=== PATIENT | male | born 1970 | race Caucasian/White ===

== ENCOUNTER 2018-09-25 06:11 | Day surgery (SDC) | payer BC ==
[~2018-09-25] VITALS: Ht 165.1 cm; Wt 85.7 kg
[~2018-09-25 06:11] MED LIST: CENTCHW3 PO; CLIN150C14 PO; GABA600T4 PO; GLIP5TAB20 PO; LIDO1SOL7 PO; LIPI20TA PO; LR 1,000 ML IV ONE; MELA10CA PO; MELA3TAB PO; METF500T4 PO; NAPR-885 PO; NEXI20CA PO; PROBCAP14 PO; VITATAB11 PO; ZYRT10CA PO
[2018-09-25] MEDS ORDERED: LIDOCAINE 1% MDV 20ML VIAL As Ordered ONE (06:42)
[2018-09-25] MEDS ORDERED: BACITRACIN OINT 30GM As Ordered ONE (06:42)
[2018-09-25] MEDS ORDERED: BUPIVACAINE HCL 0.25% 10 ML VIAL As Ordered ONE (06:43)
[2018-09-25] MEDS ORDERED: MIDAZOLAM INJ 2 MG/2 ML VIAL (J2250) As Ordered ONE ×2 (07:12→07:19)
[2018-09-25] MEDS ORDERED: dexameTHASONE 4 MG/ML 1ML VIAL (J1100) As Ordered ONE ×2 (07:12→08:08)
[2018-09-25] MEDS ORDERED: PROPOFOL 200 MG/20 ML VIAL As Ordered ONE ×2 (07:12→07:37)
[2018-09-25] MEDS ORDERED: LIDOCAINE 2% INJ 100 MG/5 ML SDV (FOR ANES.) As Ordered ONE (07:12)
[2018-09-25] MEDS ORDERED: ROCURONIUM BROMIDE 50 MG/5 ML VIAL As Ordered ONE ×2 (07:12→07:37)
[2018-09-25] MEDS ORDERED: fentaNYL 250 MCG/5 ML INJECTION (J3010) As Ordered ONE (07:12)
[2018-09-25] MEDS ORDERED: ONDANSETRON 4MG/2ML VIAL (J2405) As Ordered ONE ×2 (07:12→08:08)
[2018-09-25] MEDS ORDERED: fentaNYL 100 MCG/2 ML INJECTION (J3010) As Ordered ONE ×2 (07:19→09:36)
[2018-09-25] MEDS ORDERED: PHENYLephrine HCL 500 MCG/5 ML (100MCG/ML) SYRINGE (J2370) As Ordered ONE (07:58)
[2018-09-25] MEDS ORDERED: METOCLOPRAMIDE INJ 10MG/2ML VIAL (J2765) As Ordered ONE (08:08)
[2018-09-25] MEDS ORDERED: SUCCINYLCHOLINE 100 MG/5 ML SYRINGE (J0330) As Ordered ONE (08:08)
[2018-09-25] MEDS ORDERED: ALBUTEROL 6.7GM INHALER **FOR ANES. CART/OMNICELL ONLY As Ordered ONE (08:08)
[2018-09-25] MEDS ORDERED: GLYCOPYRROLATE INJ 0.2 MG/ML 2 ML VIAL As Ordered ONE (08:28)
[2018-09-25] MEDS ORDERED: NEOSTIGMINE 10 MG/10 ML VIAL (J2710) As Ordered ONE (08:28)
[2018-09-25] MEDS ORDERED: HYDROmorphone HCL 2 MG/ML 1ML VIAL (J1170) As Ordered ONE (08:30)
[2018-09-25] MEDS: PERCOCET 5MG/325MG TAB PO PRN ×2 (09:35→10:10)
[2018-09-25] MEDS ORDERED: PERCOCET 5MG/325MG TAB As Ordered ONE (09:36)
[2018-09-25] MEDS ORDERED: ONDANSETRON 4MG/2ML VIAL (J2405) IV PRN (09:45)
[2018-09-25] MEDS ORDERED: PERCOCET 5MG/325MG TAB PO PRN ×2 (09:45)
[2018-09-25] MEDS ORDERED: fentaNYL 100 MCG/2 ML INJECTION (J3010) IV PRN (09:45)
[2018-09-25] MEDS ORDERED: LR 1,000 ML IV SCH (09:45)
[2018-09-25 12:00] VITALS: BP 136/77
--- NOTE | 2018-09-25 16:10 | RO ---
DATE OF PROCEDURE: 09/25/2018 PREPROCEDURE DIAGNOSIS: Right hydrocele. POSTPROCEDURE DIAGNOSIS: Right hydrocele. PROCEDURE: Right hydrocelectomy. SURGEON: Rodo Ramey MD [employer]: None. ANESTHESIA: General. OPERATIVE INDICATIONS: This is a 48-year-old male with a large right hydrocele. He was brought to the operating room today for the above listed procedure. DESCRIPTION OF PROCEDURE: The patient was brought to the operating room and general anesthesia was induced. Prophylactic antibiotics were infused. He was then placed in the supine position in preparation for the above listed procedure. At this point, an approximately 4 cm transverse incision was made over the right hemiscrotum. We then dissected down through the scrotal wall layers and then the testicle was delivered outside of the scrotum inside of the tunica vaginalis. At this point, the tunica vaginalis was opened and the hydrocele fluid immediately drained. The fluid was clear. All of the fluid was drained out. At this point, we began resecting the hydrocele sac using cautery, and of note, the hydrocele did appear to be septated. All compartments of the hydrocele sac were then removed completely using cautery. Once it was done, the edges of the hydrocele sac were oversewn using a #3-0 Vicryl suture. Throughout the procedure, made sure not to cause any damage to any vital structures of the testicle. At this point, hemostasis was obtained using electrocautery. Once satisfied with hemostasis, the testicle was delivered back inside the right hemiscrotum in its normal anatomic position. At this point, we began closure by closing first the dartos with a running #3-0 chromic suture. The skin was then closed with interrupted #2-0 chromic sutures. Bacitracin ointment was applied and then dressings were applied, and this marked the conclusion of the procedure. The patient was then awakened from anesthesia and transported to the recovery room in stable condition. Estimated blood loss was 5 mL. Complications: None. Specimens: Right hydrocele sac. Plan: The patient will followup in the clinic in a few weeks for a postoperative visit.
== END 2018-09-25 12:10 | disposition home or self-care (01) ==
LOC: M SDC 06:11
PROVIDERS: ATTEND Urology
DX: N43.3 Hydrocele, unspecified (principal); E78.5 Hyperlipidemia, unspecified; E10.9 Type 1 diabetes mellitus without complications; Z79.4 Long term (current) use of insulin; Z79.84 Long term (current) use of oral hypoglycemic drugs; K21.9 Gastro-esophageal reflux disease without esophagitis; F17.210 Nicotine dependence, cigarettes, uncomplicated; Z91.013 Allergy to seafood; Z79.899 Other long term (current) drug therapy; Z85.831 Personal history of malignant neoplasm of soft tissue
CPT/HCPCS: 55040; 88302; J0330; J0690; J1170; J2250; J2405; J2710; J2765; J3010

== ENCOUNTER → 2020-08-08 | Outpatient (REF) | payer BC ==
[~2020-08-08] MED LIST changes: -CLIN150C14 PO; +CLIN150C15 PO; -LIDO1SOL7 PO; +LIDO2SOL17 PO; -LR 1,000 ML IV ONE; -MELA3TAB PO; +MELA3TAB70 PO; +METF-838 PO; -METF500T4 PO
[2020-08-08 13:49] LABS: CREATININE, URINE 67.4 MG/DL; MALB URINE SIEMENS 16.7 MG/L; MAU/CREAT RATIO 24.7 MCG/MG (0.0-30.0)
[2020-08-08 14:12] LABS: BLOOD UREA NITROGEN 17 MG/DL (7-18); CALCIUM LEVEL 9.9 MG/DL (8.5-10.1); CARBON DIOXIDE LEVEL 28 MEQ/L (21-32); CHLORIDE LEVEL 103 MEQ/L (98-107); CREATININE FOR GFR 0.96 MG/DL (0.70-1.30); GLOMERULAR FILTRATION RATE > 60.0 (>60); GLUCOSE, FASTING 170 MG/DL (70-100); POTASSIUM SERUM 4.2 MEQ/L (3.5-5.1); SODIUM LEVEL 139 MEQ/L (136-145)
[2020-08-08 14:13] LABS: ALBUMIN 4.4 GM/DL (3.2-5.2); ALT/SGPT 100 U/L (12-78); BILIRUBIN,TOTAL 0.4 MG/DL (0.2-1.0); CHOLESTEROL LEVEL 170 MG/DL (<200); HDL CHOLESTEROL 55 MG/DL (>40); LDL CHOLESTEROL 71 MG/DL (<100); NON-HDL-C 115 MG/DL; TOTAL PROTEIN 7.8 GM/DL (6.4-8.2); TRIGLYCERIDES LEVEL 218 MG/DL (<150)
[2020-08-08 15:35] LABS: HEMOGLOBIN A1c 9.9 %
== END ==
LOC: M SFHCCLAY 08:50
PROVIDERS: ATTEND Family Medicine
DX: E11.9 Type 2 diabetes mellitus without complications (principal); Z79.4 Long term (current) use of insulin; I11.9 Hypertensive heart disease without heart failure; E78.5 Hyperlipidemia, unspecified

== ENCOUNTER → 2021-09-12 | Outpatient (REF) | payer BC ==
[~2021-09-12] MED LIST changes: -CLIN150C15 PO; +CLIN150C17 PO
[2021-09-12 16:21] LABS: BLOOD UREA NITROGEN 18 MG/DL (7-18); CALCIUM LEVEL 9.9 MG/DL (8.5-10.1); CARBON DIOXIDE LEVEL 24 MEQ/L (21-32); CHLORIDE LEVEL 104 MEQ/L (98-107); CHOLESTEROL LEVEL 130 MG/DL (<200); CHOLESTEROL RISK RATIO 2.407 (<5); CREATININE FOR GFR 0.86 MG/DL (0.70-1.30); GLOMERULAR FILTRATION RATE > 60.0 (>60); GLUCOSE, FASTING 107 MG/DL (70-100); HDL CHOLESTEROL 54 MG/DL (>40); LDL CHOLESTEROL 56 MG/DL (<100); NON-HDL-C 76 MG/DL; POTASSIUM SERUM 4.8 MEQ/L (3.5-5.1); SODIUM LEVEL 136 MEQ/L (136-145); TRIGLYCERIDES LEVEL 100 MG/DL (<150)
== END ==
LOC: M SFHCCLAY 10:33
PROVIDERS: ATTEND Family Medicine
DX: I11.9 Hypertensive heart disease without heart failure (principal); E11.65 Type 2 diabetes mellitus with hyperglycemia

== ENCOUNTER → 2022-03-25 | Outpatient (REF) | payer BC | LOC: M SFHCCLAY 09:43 | PROVIDERS: ATTEND Nurse Practitioner Family | DX: I11.9 Hypertensive heart disease without heart failure (principal); E11.65 Type 2 diabetes mellitus with hyperglycemia; Z53.9 Procedure and treatment not carried out, unspecified reason ==

== ENCOUNTER → 2022-03-26 | Outpatient (REF) | payer BC ==
[2022-03-26 17:31] LABS: HEMATOCRIT 43.8 % (42.0-52.0); HEMOGLOBIN 15.4 g/dl (13.5-17.5); MEAN CORPUSCULAR HEMOGLOBIN 31.6 pg (27.0-33.0); MEAN CORPUSCULAR HGB CONC 35.2 g/dl (32.0-36.5); MEAN CORPUSCULAR VOLUME 89.9 fl (80.0-96.0); PLATELET COUNT, AUTOMATED 295 10^3/uL (150-450); RED BLOOD COUNT 4.87 10^6/uL (4.30-6.10); WHITE BLOOD COUNT 10.4 10^3/uL (4.0-10.0)
[2022-03-26 18:32] LABS: ALT/SGPT 45 U/L (12-78); BILIRUBIN,TOTAL 0.5 MG/DL (0.2-1.0); BLOOD UREA NITROGEN 16 MG/DL (7-18); CALCIUM LEVEL 9.3 MG/DL (8.5-10.1); CARBON DIOXIDE LEVEL 25 MEQ/L (21-32); CHLORIDE LEVEL 101 MEQ/L (98-107); CHOLESTEROL LEVEL 136 MG/DL (<200); CREATININE FOR GFR 0.86 MG/DL (0.70-1.30); GLOMERULAR FILTRATION RATE > 60.0 (>60); GLUCOSE, FASTING 103 MG/DL (70-100); HDL CHOLESTEROL 52 MG/DL (>40); POTASSIUM SERUM 4.7 MEQ/L (3.5-5.1); SODIUM LEVEL 134 MEQ/L (136-145); TRIGLYCERIDES LEVEL 115 MG/DL (<150)
[2022-03-26 18:33] LABS: ALBUMIN 4.1 GM/DL (3.2-5.2); CHOLESTEROL RISK RATIO 2.615 (<5); LDL CHOLESTEROL 61 MG/DL (<100); NON-HDL-C 84 MG/DL; TOTAL PROTEIN 7.8 GM/DL (6.4-8.2)
[2022-03-26 18:35] LABS: MALB URINE SIEMENS 27.4 MG/L; MAU/CREAT RATIO 17.2 MCG/MG (0.0-30.0)
[2022-03-26 20:51] LABS: HEMOGLOBIN A1c 11.3 %
== END ==
LOC: M SFHCCLAY 09:32
PROVIDERS: ATTEND Nurse Practitioner Family
DX: I11.9 Hypertensive heart disease without heart failure (principal); E11.65 Type 2 diabetes mellitus with hyperglycemia

== ENCOUNTER → 2022-06-25 | Outpatient (REF) | payer BC ==
[2022-06-25 18:47] LABS: HEMATOCRIT 47.9 % (42.0-52.0); HEMOGLOBIN 16.5 g/dl (13.5-17.5); MEAN CORPUSCULAR HEMOGLOBIN 30.8 pg (27.0-33.0); MEAN CORPUSCULAR HGB CONC 34.4 g/dl (32.0-36.5); MEAN CORPUSCULAR VOLUME 89.5 fl (80.0-96.0); PLATELET COUNT, AUTOMATED 248 10^3/uL (150-450); RED BLOOD COUNT 5.35 10^6/uL (4.30-6.10); WHITE BLOOD COUNT 9.2 10^3/uL (4.0-10.0)
[2022-06-25 19:10] LABS: ALBUMIN 4.1 G/DL (3.2-5.2); CARBON DIOXIDE LEVEL 25 MMOL/L (20-31); CHLORIDE LEVEL 99 MMOL/L (98-107); SODIUM LEVEL 133 MMOL/L (136-145)
[2022-06-25 19:12] LABS: TRIGLYCERIDES LEVEL 565 MG/DL (<150)
[2022-06-25 19:13] LABS: ALKALINE PHOSPHATASE 107 U/L (46-116); BLOOD UREA NITROGEN 13 MG/DL (9-23)
[2022-06-25 19:14] LABS: BILIRUBIN,TOTAL 0.3 MG/DL (0.3-1.2); TOTAL PROTEIN 7.7 G/DL (5.7-8.2)
[2022-06-25 19:15] LABS: ALT/SGPT 78 U/L (7.0-40); AST/SGOT 65 U/L (<34)
[2022-06-25 19:16] LABS: CALCIUM LEVEL 9.7 MG/DL (8.5-10.1); GLUCOSE, FASTING 280 MG/DL (60-100)
[2022-06-25 19:18] LABS: CHOLESTEROL LEVEL 222 MG/DL (<200); CHOLESTEROL RISK RATIO 4.57 (<5); CREATININE FOR GFR 0.59 MG/DL (0.70-1.30); GLOMERULAR FILTRATION RATE > 60.0 (>60); HDL CHOLESTEROL 48.5 MG/DL (>40); NON-HDL-C 174 MG/DL
[2022-06-25 19:19] LABS: POTASSIUM SERUM 4.3 MMOL/L (3.5-5.1)
[2022-06-25 19:38] LABS: HEMOGLOBIN A1c 8.8 % (4.0-6.0)
== END ==
LOC: M SFHCCLAY 09:34
PROVIDERS: ATTEND Nurse Practitioner Family
DX: I11.9 Hypertensive heart disease without heart failure (principal); E78.5 Hyperlipidemia, unspecified

== ENCOUNTER → 2022-07-12 | Outpatient (REF) | payer BC ==
[2022-07-12 12:29] LABS: CHOLESTEROL LEVEL 181 MG/DL (<200); CHOLESTEROL RISK RATIO 3.93 (<5); NON-HDL-C 135 MG/DL; TRIGLYCERIDES LEVEL 466 MG/DL (<150)
[2022-07-12 12:49] LABS: HEPATITIS B SURFACE ANTIGEN NEGATIVE (NEGATIVE)
[2022-07-12 13:10] LABS: HEPATITIS C VIRUS ABY INDEX 0.1 INDEX (<0.8)
[2022-07-12 13:11] LABS: HEPATITIS B CORE ANTIBODY IGM NEGATIVE (NEGATIVE)
== END ==
LOC: M SFHCCLAY 09:04
PROVIDERS: ATTEND Nurse Practitioner Family
DX: R74.8 Abnormal levels of other serum enzymes (principal); E78.5 Hyperlipidemia, unspecified

== ENCOUNTER → 2022-07-26 | Outpatient (CLI) | payer BC | LOC: M WHC 08:26 | PROVIDERS: ATTEND Nurse Practitioner Family | DX: R16.0 Hepatomegaly, not elsewhere classified (principal); K76.0 Fatty (change of) liver, not elsewhere classified; R74.8 Abnormal levels of other serum enzymes ==

== ENCOUNTER → 2022-09-23 | Outpatient (REF) | payer BC ==
[~2022-09-23] MED LIST changes: +LIDO15SO4 PO; -LIDO2SOL17 PO
[2022-09-23 18:15] LABS: HEMOGLOBIN A1c 10.6 % (4.0-6.0)
[2022-09-23 18:21] LABS: ALBUMIN 3.9 G/DL (3.2-5.2); ALKALINE PHOSPHATASE 121 U/L (46-116); ALT/SGPT 43 U/L (7.0-40); AST/SGOT 30 U/L (<34); BILIRUBIN,TOTAL 0.4 MG/DL (0.3-1.2); BLOOD UREA NITROGEN 12 MG/DL (9-23); CALCIUM LEVEL 9.3 MG/DL (8.5-10.1); CARBON DIOXIDE LEVEL 27 MMOL/L (20-31); CHLORIDE LEVEL 101 MMOL/L (98-107); CHOLESTEROL LEVEL 186 MG/DL (<200); CHOLESTEROL RISK RATIO 3.72 (<5); CREATININE FOR GFR 0.72 MG/DL (0.70-1.30); FREE T4 1.14 NG/DL (0.89-1.76); GLOMERULAR FILTRATION RATE > 60.0 (>56); GLUCOSE, FASTING 383 MG/DL (60-100); NON-HDL-C 136 MG/DL; POTASSIUM SERUM 4.5 MMOL/L (3.5-5.1); SODIUM LEVEL 136 MMOL/L (136-145); THYROID STIMULATING HORMONE 0.804 uIU/ML (0.55-4.78)
[2022-09-23 18:36] LABS: TOTAL PROTEIN 7.3 G/DL (5.7-8.2); TRIGLYCERIDES LEVEL 524 MG/DL (<150)
== END ==
LOC: M SFHCCLAY 10:12
PROVIDERS: ATTEND Nurse Practitioner Family
DX: E11.42 Type 2 diabetes mellitus with diabetic polyneuropathy (principal); E11.65 Type 2 diabetes mellitus with hyperglycemia; I10 Essential (primary) hypertension; K76.0 Fatty (change of) liver, not elsewhere classified; E78.5 Hyperlipidemia, unspecified; R00.2 Palpitations
CPT/HCPCS: 80053; 80061; 83036; 84439; 84443; G0103

== ENCOUNTER → 2023-02-06 | Outpatient (REF) | payer BC ==
[~2023-02-06] MED LIST changes: +LIDO15SO PO; -LIDO15SO4 PO
[2023-02-06 12:04] LABS: HEMOGLOBIN A1c 10.8 % (4.0-6.0)
[2023-02-06 12:19] LABS: ALKALINE PHOSPHATASE 102 U/L (46-116); ALT/SGPT 40 U/L (7.0-40); AST/SGOT < 8 U/L (<34); BILIRUBIN,TOTAL 0.4 MG/DL (0.3-1.2); BLOOD UREA NITROGEN 13 MG/DL (9-23); CALCIUM LEVEL 9.3 MG/DL (8.5-10.1); CARBON DIOXIDE LEVEL 27 MMOL/L (20-31); CHLORIDE LEVEL 103 MMOL/L (98-107); CREATININE FOR GFR 0.64 MG/DL (0.70-1.30); GLOMERULAR FILTRATION RATE > 60.0 (>56); GLUCOSE, FASTING 212 MG/DL (60-100); SODIUM LEVEL 138 MMOL/L (136-145); TOTAL PROTEIN 7.3 G/DL (5.7-8.2)
== END ==
LOC: M SFHCCLAY 08:39
PROVIDERS: ATTEND Nurse Practitioner Family
DX: E11.65 Type 2 diabetes mellitus with hyperglycemia (principal); K76.0 Fatty (change of) liver, not elsewhere classified

== ENCOUNTER → 2023-02-19 | Outpatient (CLI) | payer BC | LOC: M CARPUL 09:34 | PROVIDERS: ATTEND Nurse Practitioner Family | DX: R07.9 Chest pain, unspecified (principal) ==

== ENCOUNTER → 2023-05-28 | Outpatient (REF) | payer BC ==
[2023-05-28 17:49] LABS: HEMOGLOBIN A1c 11.1 % (4.0-6.0)
[2023-05-28 18:55] LABS: ALBUMIN 4.2 G/DL (3.2-5.2); ALKALINE PHOSPHATASE 98 U/L (46-116); ALT/SGPT 32 U/L (7.0-40); AST/SGOT 16 U/L (<34); BILIRUBIN,TOTAL 0.3 MG/DL (0.3-1.2); BLOOD UREA NITROGEN 14 MG/DL (9-23); CALCIUM LEVEL 9.8 MG/DL (8.5-10.1); CARBON DIOXIDE LEVEL 26 MMOL/L (20-31); CHLORIDE LEVEL 99 MMOL/L (98-107); CHOLESTEROL LEVEL 175 MG/DL (<200); CHOLESTEROL RISK RATIO 3.95 (<5); CREATININE FOR GFR 0.74 MG/DL (0.70-1.30); GLOMERULAR FILTRATION RATE > 60.0 (>56); GLUCOSE, FASTING 456 MG/DL (60-100); HDL CHOLESTEROL 44.2 MG/DL (>40); NON-HDL-C 130.8 MG/DL; POTASSIUM SERUM 4.6 MMOL/L (3.5-5.1); SODIUM LEVEL 134 MMOL/L (136-145); TOTAL PROTEIN 7.6 G/DL (5.7-8.2); TRIGLYCERIDES LEVEL 508 MG/DL (<150)
== END ==
LOC: M SFHCCLAY 09:56
PROVIDERS: ATTEND Nurse Practitioner Family
DX: E11.65 Type 2 diabetes mellitus with hyperglycemia (principal); E11.42 Type 2 diabetes mellitus with diabetic polyneuropathy; F41.9 Anxiety disorder, unspecified; K76.0 Fatty (change of) liver, not elsewhere classified; I10 Essential (primary) hypertension; K21.9 Gastro-esophageal reflux disease without esophagitis; F17.210 Nicotine dependence, cigarettes, uncomplicated; E78.5 Hyperlipidemia, unspecified

== ENCOUNTER 2024-01-20 12:11 | Emergency (ER) | payer BC ==
[~2024-01-20] VITALS: Ht 167.6 cm; Wt 81.4 kg
[~2024-01-20 12:11] MED LIST changes: -LIDO15SO PO; +LIDO15SO8 PO
[2024-01-20 12:13] VITALS: BP 123/79; TEMP 98; O2SAT 99
[2024-01-20] MEDS ORDERED: FENO54TA2 (12:40)
[2024-01-20] MEDS ORDERED: PREG300C2 (12:40)
[2024-01-20] MEDS ORDERED: LISI10TA22 (12:40)
[2024-01-20] MEDS ORDERED: JARD1TAB3 (12:40)
[2024-01-20] MEDS ORDERED: CETI-24 (12:40)
[2024-01-20] MEDS ORDERED: AMIT50TA PO (12:40)
[2024-01-20] MEDS ORDERED: BUPR-597 (12:40)
[2024-01-20] MEDS ORDERED: GABA-1171 (12:40)
[2024-01-20] MEDS ORDERED: OMEP40CA5 (12:40)
[2024-01-20] MEDS ORDERED: METF10004 (12:40)
[2024-01-20] MEDS ORDERED: BASA100I (12:40)
== END 2024-01-20 14:31 | disposition left against medical advice (07) ==
LOC: M ED 12:11
DX: Z53.21 Procedure and treatment not carried out due to patient leaving prior to being seen by health care provider (principal)

== ENCOUNTER → 2024-02-27 | Outpatient (REF) ==
[~2024-02-27] MED LIST changes: +AMIT50TA PO; +BASA100I; +BUPR-597; +CETI-24; +FENO54TA2; +GABA-1171; +JARD1TAB3; +LISI10TA22; +METF10004; +OMEP40CA5; +PREG300C2
== END ==
LOC: M EMP 09:00
PROVIDERS: ATTEND Family Medicine
DX: Z20.822 Contact with and (suspected) exposure to COVID-19 (principal)

== ENCOUNTER → 2024-05-31 | Outpatient (REF) | payer BC ==
[~2024-05-31] MED LIST changes: +GABA-1490 PO; -GABA600T4 PO
[2024-05-31 18:03] LABS: ALBUMIN 3.8 G/DL (3.2-5.2); ALKALINE PHOSPHATASE 91 U/L (40-129); ALT/SGPT 30 U/L (7.0-40); AST/SGOT 12 U/L (<34); BILIRUBIN,TOTAL 0.3 MG/DL (0.3-1.2); BLOOD UREA NITROGEN 15 MG/DL (9-23); CARBON DIOXIDE LEVEL 26 MMOL/L (20-31); CHLORIDE LEVEL 101 MMOL/L (98-107); CHOLESTEROL LEVEL 242 MG/DL (<200); CHOLESTEROL RISK RATIO 5.74 (<5); CREATININE FOR GFR 0.78 MG/DL (0.70-1.30); FREE T4 1.32 NG/DL (0.89-1.76); GLOMERULAR FILTRATION RATE > 60.0 (>56); GLUCOSE, FASTING 364 MG/DL (60-100); HDL CHOLESTEROL 42.1 MG/DL (>40); NON-HDL-C 199.9 MG/DL; POTASSIUM SERUM 4.9 MMOL/L (3.5-5.1); SODIUM LEVEL 134 MMOL/L (136-145); THYROID STIMULATING HORMONE 0.767 uIU/ML (0.55-4.78); TOTAL PROTEIN 7.6 G/DL (5.7-8.2); TRIGLYCERIDES LEVEL 675 MG/DL (<150)
[2024-05-31 18:43] LABS: HEMOGLOBIN A1c 13.2 % (4.0-6.0)
== END ==
LOC: M SFHCCLAY 11:03
PROVIDERS: ATTEND Nurse Practitioner Family
DX: E11.65 Type 2 diabetes mellitus with hyperglycemia (principal); E11.42 Type 2 diabetes mellitus with diabetic polyneuropathy; F41.9 Anxiety disorder, unspecified; K76.0 Fatty (change of) liver, not elsewhere classified; I10 Essential (primary) hypertension; K21.9 Gastro-esophageal reflux disease without esophagitis; F17.210 Nicotine dependence, cigarettes, uncomplicated; E78.5 Hyperlipidemia, unspecified; F10.10 Alcohol abuse, uncomplicated